=== PATIENT | male | born 1965 | race Caucasian/White ===

== ENCOUNTER 2025-07-16 11:05 | Emergency (ER) | payer OTHER, SELFPAY ==
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
--- NOTE | ~2025-07-16 | XR_ITS ---
EXAMINATION: XR foot LT 2V, 07/16/2025 11:59 CDT HISTORY: pain, bruising, swelling 1st metatarsal COMPARISON: No comparisons available. Findings: No acute fracture or malalignment. No significant degenerative changes. Soft tissues unremarkable. Impression: No acute fracture or malalignment. Reviewed, dictated and finalized at location P. Impression: No acute fracture or malalignment.
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
[2025-07-16 11:17] VITALS: BP 155/86; PULSE 73; RESP 16; TEMP 37; O2SAT 99
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
== END 2025-07-16 12:50 | disposition home or self-care (01) ==
PROVIDERS: Emergency Provider Nurse Practitioner
DX: S82.61XA Displaced fracture of lateral malleolus of right fibula, initial encounter for closed fracture (principal); S70.02XA Contusion of left hip, initial encounter; S90.02XA Contusion of left ankle, initial encounter; S90.32XA Contusion of left foot, initial encounter; S80.211A Abrasion, right knee, initial encounter; V28.09XA Other motorcycle driver injured in noncollision transport accident in nontraffic accident, initial encounter
CPT/HCPCS: 29515; 73502; 73562; 73610; 73620; 99204; G0463